=== PATIENT | female | born 1975 | race Caucasian/White ===

== ENCOUNTER 2022-08-17 05:42 | Day surgery (SDC) | payer OTHER ==
--- NOTE | 2022-08-16 11:57 | HP ---
DATE OF SURGERY: 08/17/2022 HISTORY OF PRESENT ILLNESS: The patient is a 47-year-old female presents with some anemia. She is seeing Dr. Gutierrez. She is hypothyroid, not sure if this is the issue with the anemia. PAST MEDICAL HISTORY: Hypothyroidism, asthma, arthritis, depression, anemia, anxiety, neuropathy, migraine, angioedema. History of migraines, allergic rhinitis, asthma, syncopal episodes. PAST SURGICAL HISTORY: T&A. section. Left knee scope. ALLERGIES: ERYTHROMYCIN. PENICILLIN. TRIMETHOPRIM. SULFAMETHOXAZOLE. MEDICATIONS: Levothyroxine, sumatriptan, hydroxyzine, Flonase, buspirone, gabapentin, Reglan, diclofenac, albuterol, Lasix. FAMILY HISTORY: Heart disease, hypertension, kidney disease. SOCIAL HISTORY: Occasional alcohol. REVIEW OF SYSTEMS: CONSTITUTIONAL: Denies fever or chills. CHEST: Denies shortness of breath. CVS: Denies chest pain. ABDOMEN: Denies abdominal pain. PHYSICAL EXAMINATION: GENERAL: No acute distress. CHEST: Nonlabored. No shortness of breath. CVS: Regular rate and rhythm. ABDOMEN: Soft. IMPRESSION: Anemia. PLAN: EGD and colonoscopy with Dr. Harsh Covington. As dictated by Heather Pires NP.
[2022-08-17] MEDS ORDERED: Versed 2 MG/2 ML Injection IV PRN (06:11)
[2022-08-17] MEDS ORDERED: Lactated Ringers 1,000 ML IV SCH (06:30)
[2022-08-17] MEDS ORDERED: DIPRIVAN 200 MG/20 ML IV ONE ×3 (07:45→09:12)
[2022-08-17] MEDS ORDERED: Xylocaine-Mpf 2% 5 Ml Vial ONE (07:45)
[2022-08-17] MEDS ORDERED: GlucaGen 1 MG ONE (09:08)
[2022-08-17 09:59] VITALS: O2SAT 100
[2022-08-17 10:00] VITALS: BP 160/91; PULSE 70
--- NOTE | 2022-08-17 12:53 | OP ---
SURGERY DATE/TIME: 08/17/2022 0848 PREOPERATIVE DIAGNOSIS: Anemia possible GI. POSTOPERATIVE DIAGNOSES: 1) Normal EGD with grade I gastroesophageal reflux disease. 2) Normal colonoscopic examination to cecum with mild internal hemorrhoid. PROCEDURES: 1) EGD. 2) Colonoscopy. SURGEON: Harsh Covington M.D. ANESTHESIA: MAC by Antoni Alcaraz CRNA. COMPLICATIONS: None. CONDITION: Stable. INDICATION: A patient with anemia, 47 years old not had a colonoscopic examination, not had an EGD. She does have some heavy periods and she is currently having menses. DESCRIPTION OF PROCEDURE: She is taken to endoscopy. Left lateral decubitus position. Scope introduced. Pharyngoesophageal junction normal. Esophagus normal. Gastroesophageal junction normal. No hiatal hernia. Fundus, body, antrum normal. Pylorus normal. Duodenal bulb normal. Second portion normal. Scope withdrawn looped upon itself. No hiatal hernia. Scope withdrawn. At the gastroesophageal junction there was grade 1 gastroesophageal reflux disease on withdrawal of the scope. There was an active period. Scope inserted into the anus. Mild internal hemorrhoids. No bleeding here. The stool was normal all the way around. Glucagon was given. There was no spasm. Base of the cecum, ileocecal valve, appendiceal orifice was normal. Ascending, hepatic, transverse, splenic, descending, sigmoid, rectum, anus other than spasm in the sigmoid was normal. Basically normal examination. I believe her bleeding is coming elsewhere either LOG WASHER or unknown production other. It is not coming from these two structures in the GI tract.
== END 2022-08-17 10:05 | disposition home or self-care (01) ==
LOC: SDC 05:42
PROVIDERS: ATTEND Surgery
DX: K21.9 Gastro-esophageal reflux disease without esophagitis (principal); D64.9 Anemia, unspecified; K64.8 Other hemorrhoids
CPT/HCPCS: 81025; 96374; J1610; J2250; J2704